=== PATIENT | female | born 1995 | race American Indian/Alaskan Native ===

== ENCOUNTER 2017-10-18 01:46 | Outpatient (CLI) | payer MEDICAID ==
[2017-10-18 04:38] VITALS: BP 118/70
== END 2017-10-18 05:10 | disposition home or self-care (01) ==
LOC: TRG 01:46
PROVIDERS: ATTEND Obstetrics & Gynecology
DX: O47.1 False labor at or after 37 completed weeks of gestation (principal); Z3A.39 39 weeks gestation of pregnancy

== ENCOUNTER 2017-10-18 10:40 | Inpatient (IN) | payer MEDICAID ==
[2017-10-18 13:26] LABS: Hematocrit 37.2 % (30.3-42.9); Hemoglobin 11.6 gm/dl (10.1-14.3); Mean Corpuscular HGB Conc 31 % (30-34); Mean Corpuscular Hemoglobin 23 pg (28-32); Mean Corpuscular Volume 74 fl (79-97); Platelet Count 199 K/mm3 (140-440); Red Blood Count 5.01 M/mm3 (3.65-5.03); Red Cell Distribution Width 15.9 % (13.2-15.2)
[2017-10-18] MEDS ORDERED: XYLOCAINE 2% INFILTRATI ONE (13:26)
[2017-10-18] MEDS ORDERED: BRETHINE SUB-Q PRN (13:26)
[2017-10-18] MEDS ORDERED: PHENERGAN PO PRN ×2 (13:26→18:29)
[2017-10-18] MEDS ORDERED: STADOL IV PRN (13:26)
[2017-10-18] MEDS ORDERED: MINERAL OIL PO PRN (13:26)
[2017-10-18] MEDS ORDERED: BRETHINE IVP PRN (13:26)
[2017-10-18] MEDS ORDERED: ePHEDrine SULFATE IV PRN (13:26)
[2017-10-18] MEDS ORDERED: ZOFRAN IV PRN ×2 (13:26→18:29)
[2017-10-18] MEDS ORDERED: SUBLIMAZE IV PRN (13:26)
--- NOTE | 2017-10-18 13:29 | History and Physical Report ---
History of Present Illness Date of examination: 10/18/17 Chief complaint: Labor History of present illness: Pt is a 21yo BF EDC 10/21/17; EGA 39 4/7 weeks presents to L&D complaining of RUC's q 3-5 mins. She received care at [facility] since 7 weeks, and course has been unremarkable. records are available and GBS is Negative. Past History Past Medical History: no pertinent history Past Surgical History: no surgical history [employer] History: chlamydia Social history: no significant social history, single - Obstetrical History Expected Date of Delivery: 10/21/17 Actual Gestation: 39 Week(s) 4 Day(s) : 1 Medications and Allergies Allergies Allergy/AdvReac Type Severity Reaction Status Date / Time No Known Allergies Allergy Unverified 10/18/17 02:48 Home Medications Medication Instructions Recorded Confirmed Last Taken Type Ferrous Sulfate [Feosol 325 MG tab] 325 mg PO DAILY 10/18/17 10/18/17 10/17/17 10:00 History Review of Systems All systems: negative - Vital Signs Vital signs: Vital Signs Pulse BP 103 H 139/90 10/18/17 11:19 10/18/17 11:19 Temp Pulse Resp BP Pulse Ox 103 H 139/90 10/18/17 11:19 10/18/17 11:19 - Physical Exam Breasts: Positive: deferred Cardiovascular: Regular rate Lungs: Positive: Clear to auscultation Abdomen: Positive: normal appearance Genitourinary (Female): Positive: normal external genitalia Uterus: Positive: enlarged Extremities: Positive: normal - Obstetrical FHR: category 1 Uterine Contraction Monitor Mode: External Cervical Dilatation: 4 (per nurse) Cervical Effacement Percentage: 90 (per nurse) station: 0 Uterine Contraction Pattern: Regular Uterine Tone Measurement Phase: Contraction Uterine Contraction Intensity: Moderate Results Result Diagrams: 10/18/17 13:07 Abnormal lab results 10/18/17 Range/Units 13:07 WBC 17.8 H (4.5-11.0) K/mm3 MCV 74 L (79-97) fl MCH 23 L (28-32) pg RDW 15.9 H (13.2-15.2) % All other labs normal. Assessment and Plan - Patient Problems (1) 39 weeks gestation of Onset Date: 10/18/17 Current Visit: Yes Status: Acute Plan to address problem: A: IUP @ 39 4/7 weeks in labor GBS Negative P: Admit to L&D for expectant vaginal delivery
[2017-10-18] MEDS ORDERED: PITOCin/NS 30 UNIT/500ML 30 UNITS/500 ML BAG IV SCH ×2 (14:00)
[2017-10-18] MEDS ORDERED: LACTATED RINGERS 1,000 ML IV SCH (14:00)
[2017-10-18] MEDS ORDERED: PITOCin/NS 20 UNIT/1000ML DRIP 20 UNITS/1,000 ML BAG IV SCH ×2 (14:00→18:29)
--- NOTE | 2017-10-18 16:36 | Procedure Note ---
OB Delivery Note - Delivery Date of Delivery: 10/18/17 Surgeon: OMA SANCHEZ Estimated blood loss: other (150cc) - Vaginal Delivery presentation: vertex Delivery position: OA Delivery induction: none Delivery augmentation: rupture of membranes, pitocin Delivery monitor: external FHT, external uterine Route of delivery: Delivery placenta: spontaneous Delivery cord: 3 umbilical vessels Episiotomy: none Delivery laceration: none Delivery repair: vicryl Anesthesia: intravenous Delivery comments: Infant delivered OA and placed on Mom's chest for [id number] bonding and delayed cord clamping. - A at 1 minute: 8 at 5 minutes: 9 Infant Gender: Male (3192gms)
[2017-10-18] MEDS ORDERED: MILK OF MAGNESIA PO PRN (18:29)
[2017-10-18] MEDS ORDERED: BENADRYL PO PRN (18:29)
[2017-10-18] MEDS ORDERED: TUCKS PAD TP PRN (18:29)
[2017-10-18] MEDS ORDERED: LANSINOH TP PRN (18:29)
[2017-10-18] MEDS ORDERED: SODIUM CHLORIDE FLUSH SYRINGE 10 ML IV NR (18:29)
[2017-10-18] MEDS ORDERED: PHENERGAN PR PRN (18:29)
[2017-10-18] MEDS ORDERED: NORCO 5/325 PO PRN (18:29)
[2017-10-18] MEDS ORDERED: TYLENOL PO PRN (18:29)
[2017-10-18] MEDS ORDERED: DULCOLAX PR PRN (18:29)
[2017-10-18] MEDS: MOTRIN PO SCH (22:30)
[2017-10-18] MEDS: COLACE PO SCH (22:30)
[2017-10-18] MEDS: FEOSOL PO SCH (22:30)
[2017-10-19] MEDS ORDERED: BOOSTRIX IM ONE ×2 (06:15→16:38)
[2017-10-19 06:30] LABS: Hematocrit 32.3 % (30.3-42.9)
[2017-10-19] MEDS: MOTRIN PO SCH ×3 (06:42→16:38)
--- NOTE | 2017-10-19 09:08 | Progress Note ---
Assessment and Plan - Patient Problems (1) 39 weeks gestation of Onset Date: 10/18/17 Current Visit: Yes Status: Resolved (2) (normal spontaneous vaginal delivery) Onset Date: 10/19/17 Current Visit: Yes Status: Resolved Plan to address problem: A: S/P - PPD #1 Doing well Asymptomatic anemia - stable P: May go home tomorrow. Subjective - Subjective Date of service: 10/19/17 Principal diagnosis: s/p - PPD #1 Interval history: Pt is feeling well without complaints. Bleeding improved. Patient reports: appetite normal, voiding normally, pain well controlled, flatus , ambulating normally, no dizzy ambulation, no nauseated [place]: doing well, nursing well Objective - Vital Signs Latest vital signs: Vital Signs Temp Pulse Resp BP BP Pulse Ox 10/19/17 01:20 98.4 F 78 18 98/42 98 10/18/17 21:50 99.3 F 71 18 103/55 100 10/18/17 17:30 98.7 F 79 16 116/67 100 10/18/17 17:11 84 120/68 10/18/17 16:56 80 125/68 10/18/17 16:26 93 H 140/84 10/18/17 16:15 86 90 10/18/17 16:13 95 H 85 10/18/17 16:09 59 L 84 10/18/17 16:08 95 H 100 10/18/17 16:03 80 100 10/18/17 15:58 83 100 10/18/17 15:56 16 10/18/17 15:53 91 H 98 10/18/17 15:48 101 H 99 10/18/17 15:43 100 H 100 10/18/17 15:38 98 H 97 10/18/17 15:36 112 H 126/71 10/18/17 15:33 99 H 100 10/18/17 15:28 85 99 10/18/17 15:23 90 95 10/18/17 15:18 94 H 99 10/18/17 15:13 93 H 100 10/18/17 15:08 95 H 100 10/18/17 15:03 90 97 10/18/17 14:58 84 98 10/18/17 14:53 88 99 10/18/17 14:48 85 99 10/18/17 14:43 85 100 10/18/17 14:38 81 98 10/18/17 14:33 84 100 10/18/17 14:28 89 100 10/18/17 14:23 84 100 10/18/17 14:18 97 H 99 10/18/17 14:13 81 99 10/18/17 14:08 99 H 100 10/18/17 14:06 98.1 F 16 10/18/17 14:03 94 H 100 10/18/17 13:59 88 119/72 10/18/17 13:58 88 100 10/18/17 11:19 103 H 139/90 Intake and Output 10/18/17 10/19/17 10/19/17 22:59 06:59 14:59 Intake Total 480 360 Output Total 1150 600 Balance -670 360 -600 Intake: Oral 480 360 Output: Urine 1150 600 Void 1150 600 Other: Total, Intake Amount 240 240 Total, Output Amount 800 600 # Voids Void 1 1 1 Estimated Blood Loss 150 - Exam Breasts: Present: deferred Cardiovascular: Present: Regular rate Lungs: Present: Clear to auscultation Abdomen: Present: normal appearance Uterus: Present: normal, firm, fundal height below umbilicus Extremities: Present: normal - Labs Labs: Abnormal lab results 10/18/17 10/19/17 Range/Units 13:07 05:34 WBC 17.8 H (4.5-11.0) K/mm3 Hgb 10.0 L (10.1-14.3) gm/dl MCV 74 L (79-97) fl MCH 23 L (28-32) pg RDW 15.9 H (13.2-15.2) % Laboratory Tests 10/18/17 10/18/17 10/18/17 13:07 13:07 13:07 WBC 17.8 H RBC 5.01 Hgb 11.6 Hct 37.2 MCV 74 L MCH 23 L MCHC 31 RDW 15.9 H Plt Count 199 RPR Nonreactive Blood Type A POSITIVE Antibody Screen Negative 10/19/17 05:34 WBC RBC Hgb 10.0 L Hct 32.3 MCV MCH MCHC RDW Plt Count RPR Blood Type Antibody Screen
[2017-10-19] MEDS: COLACE PO SCH (10:38)
[2017-10-19] MEDS: FEOSOL PO SCH (10:38)
[2017-10-19] MEDS: PRENATAL VITAMIN PO SCH (10:38)
[2017-10-19] MEDS ORDERED: M-M-R II VACCINE SUB-Q ONE (16:38)
[2017-10-20] MEDS: MOTRIN PO SCH ×3 (00:31→14:34)
[2017-10-20] MEDS: FEOSOL PO SCH ×2 (00:31→10:35)
[2017-10-20] MEDS: COLACE PO SCH ×2 (00:31→10:35)
[2017-10-20] MEDS: PRENATAL VITAMIN PO SCH (10:35)
--- NOTE | 2017-10-20 11:15 | Discharge Summary ---
Providers - Providers Date of Admission: 10/18/17 14:17 Date of discharge: 10/20/17 Attending physician: OMA SANCHEZ Primary care physician: OMA SANCHEZ Hospitalization Reason for admission: active labor, IUP at term Delivery: Episiotomy: none Laceration: none Other procedures: none complications: none Discharge diagnosis: IUP at term delivered [place] baby: male Hospital course: Unremarkable. Condition at discharge: Good Disposition: DC-01 TO HOME OR SELFCARE - Discharge Diagnoses (1) 39 weeks gestation of Status: Resolved (2) (normal spontaneous vaginal delivery) Status: Resolved Plan - Discharge Medications Prescriptions: Ferrous Sulfate [Feosol 325 MG tab] 325 mg PO BID #60 tablet Ibuprofen [Motrin 600 MG tab] 600 mg PO Q6H #30 tablet Vit-Fe Fumar-FA [ Vitamin] 1 each PO QDAY #30 tablet - Provider Discharge Summary Activity: routine, no sex for 6 weeks, no heavy lifting 4 weeks, no strenuous exercise Diet: routine Instructions: routine Additional instructions: [] Smoking cessation referral if applicable(refer to patient education folder for contact #) [] Refer to [facility] Booklet Call your doctor immediately for: * Fever > 100.5 * Heavy vaginal bleeding ( >1 pad per hour) * Severe persistent headache * Shortness of breath * Reddened, hot, painful area to leg or breast * Drainage or odor from incision. * Keep incision clean and dry at all times and follow doctor's instructions regarding bathing/showering - Follow up plan Follow up: OMA SANCHEZ MD [Primary Care Provider] - 6 Weeks
[2017-10-20 15:57] VITALS: BP 102/46
== END 2017-10-20 16:30 | disposition home or self-care (01) | DRG 775 ==
LOC: TRG 10:40 → LD 14:17 → OB 17:24
PROVIDERS: ADMIT Obstetrics & Gynecology; ATTEND Obstetrics & Gynecology
PROC: 10E0XZZ Delivery of Products of Conception, External Approach (ICD-10-PCS; principal; 2017-10-18)
DX: O99.02 Anemia complicating childbirth (principal); Z3A.39 39 weeks gestation of pregnancy; Z37.0 Single live birth; D64.9 Anemia, unspecified
CPT/HCPCS: 36415; 85014; 85018; 85027; 86592; 86850; 86900; 86901; 90471; 90715; 99211; A6250; G0463; J0595; J2590; J3010; J7120